=== PATIENT | male | born 1990 | race Two or more races ===

== ENCOUNTER 2019-09-14 13:57 | Inpatient (IN) | payer OTHER ==
[~2019-09-14] VITALS: Ht 165.1 cm; Wt 106.0 kg
[2019-09-14] MEDS ORDERED: ACETAMINOPHEN 325 MG TABLET PO PRN ×2 (14:30→16:15)
[2019-09-14 14:38] LABS: BASOPHILS % (AUTO) 0.5 % (0.0-2.0); EOSINOPHILS % (AUTO) 0.5 % (1.0-6.0); HEMATOCRIT 46.8 % (41-53); HEMOGLOBIN 16.3 g/dL (13.5-17.5); LYMPHOCYTES # (AUTO) 2.4 K/uL (1.0-4.8); MEAN CORPUSCULAR HEMOGLOBIN 30.6 pg (26.0-34.0); MEAN CORPUSCULAR HGB CONC 34.8 G/dL (31.0-37.0); MEAN CORPUSCULAR VOLUME 88 fL (80-100); MONOCYTES # (AUTO) 0.6 K/uL (0.1-1.0); MONOCYTES % (AUTO) 8.1 % (2.0-9.0); NEUTROPHILS # (AUTO) 4.7 K/uL (1.8-7.7); NEUTROPHILS % (AUTO) 59.9 % (40.0-70.0); PLATELET COUNT (AUTO) 210 K/uL (150-450); RED BLOOD CELL COUNT(AUTO) 5.32 MIL/uL (4.50-5.90); RED CELL DISTRIBUTION WIDTH 13.2 % (11.5-14.5)
[2019-09-14 14:48] LABS: ANION GAP 11 mmol/L (8-16); CALCIUM, TOTAL 9.3 mg/dL (8.8-10.5); CARBON DIOXIDE 28 mmol/L (22-29); CHLORIDE 100 mmol/L (98-107); CREATININE 1.17 mg/dL (0.60-1.30); GLOMERULAR FILTR. RATE CALC > 60 mL/min (>60); GLUCOSE,RANDOM 99 mg/dL (70-110); POTASSIUM 3.5 mmol/L (3.5-5.1); SODIUM SERUM 139 mmol/L (136-145); UREA NITROGEN, BLOOD 18 mg/dL (7-18)
[2019-09-14 14:54] LABS: ALANINE AMINOTRANSFERASE 35 U/L (12-78); ALBUMIN 3.9 g/dL (3.4-5.0); ALKALINE PHOSPHATASE 72 U/L (46-116); ASPARTATE AMINOTRANSFERASE 20 U/L (15-37); BILIRUBIN,TOTAL 0.7 mg/dL (0.1-1.0); TOTAL PROTEIN, SERUM 7.8 g/dL (6.4-8.2)
[2019-09-14 15:07] VITALS: BP 122/67
[2019-09-14] MEDS ORDERED: INFLUENZA VIRUS VACCINE QVS 2019-20 (3YR+)/PF 60 MCG/0.5 ML SYRINGE IM ONE (16:00)
[2019-09-14] MEDS ORDERED: ZOLPIDEM TARTRATE 5 MG TABLET PO PRN (16:15)
[2019-09-14 16:44] VITALS: BP 98/58
[2019-09-14 20:00] VITALS: BP 138/70
[2019-09-14] MEDS: DOCUSATE SODIUM 100 MG CAPSULE PO SCH (20:50)
[2019-09-15] VITALS (7 sets, daily range): BP systolic 93–122; BP diastolic 52–76
[2019-09-15] MEDS: FAMOTIDINE 20 MG TABLET PO SCH (08:37)
[2019-09-15] MEDS: DOCUSATE SODIUM 100 MG CAPSULE PO SCH ×2 (08:37→21:00)
[2019-09-15] MEDS: SERTRALINE HCL 50 MG TABLET PO SCH (09:00)
[2019-09-16 04:46] VITALS: BP 107/54
[2019-09-16] MEDS: SERTRALINE HCL 50 MG TABLET PO SCH (08:10)
[2019-09-16] MEDS: DOCUSATE SODIUM 100 MG CAPSULE PO SCH ×2 (08:10→20:39)
[2019-09-16] MEDS: FAMOTIDINE 20 MG TABLET PO SCH (08:10)
[2019-09-16 08:25] VITALS: BP 110/70
[2019-09-16 11:39] VITALS: BP 112/72
[2019-09-16 15:52] VITALS: BP 119/71
[2019-09-16 20:37] VITALS: BP 127/72
[2019-09-16] MEDS: MIRTAZAPINE 15 MG TABLET PO SCH (20:39)
[2019-09-16 23:43] VITALS: BP 110/59
[2019-09-17 04:00] VITALS: BP 118/62
[2019-09-17] MEDS: DOCUSATE SODIUM 100 MG CAPSULE PO SCH ×2 (07:57→21:00)
[2019-09-17] MEDS: FAMOTIDINE 20 MG TABLET PO SCH (07:57)
[2019-09-17 08:24] VITALS: BP 128/79
[2019-09-17 12:00] VITALS: BP 108/62
[2019-09-17 15:20] VITALS: BP 102/54
[2019-09-17 19:45] VITALS: BP 109/62
[2019-09-17] MEDS: MIRTAZAPINE 15 MG TABLET PO SCH (20:32)
[2019-09-17 23:39] VITALS: BP 95/60
[2019-09-18 05:17] VITALS: BP 99/57
[2019-09-18 07:42] VITALS: BP 106/66
[2019-09-18] MEDS: DOCUSATE SODIUM 100 MG CAPSULE PO SCH ×2 (08:05→20:33)
[2019-09-18] MEDS: FAMOTIDINE 20 MG TABLET PO SCH (08:05)
[2019-09-18 11:41] VITALS: BP 109/64
[2019-09-18 16:03] VITALS: BP 112/59
[2019-09-18 20:12] VITALS: BP 118/65
[2019-09-18] MEDS: MIRTAZAPINE 15 MG TABLET PO SCH (20:31)
[2019-09-19 00:23] VITALS: BP 109/65
[2019-09-19 04:49] VITALS: BP 101/65
[2019-09-19 08:07] VITALS: BP 111/66
[2019-09-19] MEDS: DOCUSATE SODIUM 100 MG CAPSULE PO SCH ×2 (08:24→20:23)
[2019-09-19] MEDS: FAMOTIDINE 20 MG TABLET PO SCH (08:34)
[2019-09-19 12:06] VITALS: BP 104/52
[2019-09-19 15:40] VITALS: BP 112/64
[2019-09-19 19:45] VITALS: BP 106/69
[2019-09-19] MEDS: MIRTAZAPINE 15 MG TABLET PO SCH (20:23)
[2019-09-20 00:06] VITALS: BP 112/69
[2019-09-20 04:40] VITALS: BP 111/58
[2019-09-20 07:26] VITALS: BP 108/65
[2019-09-20] MEDS: FAMOTIDINE 20 MG TABLET PO SCH (08:50)
[2019-09-20] MEDS: DOCUSATE SODIUM 100 MG CAPSULE PO SCH (08:50)
[2019-09-20 11:38] VITALS: BP 98/65
[2019-09-20] MEDS ORDERED: MIRT15 PO (12:48)
== END 2019-09-20 13:55 | DRG 881 ==
LOC: EMS 14:03 → 6S 14:45
PROVIDERS: ADMIT Internal Medicine; ATTEND Internal Medicine
DX: F32.9 Major depressive disorder, single episode, unspecified (principal); R45.851 Suicidal ideations; F41.9 Anxiety disorder, unspecified; F17.210 Nicotine dependence, cigarettes, uncomplicated; Z79.899 Other long term (current) drug therapy; Z91.5 Personal history of self-harm; Z23 Encounter for immunization
CPT/HCPCS: 90686; G0480

== ENCOUNTER 2019-11-16 18:42 | Inpatient (IN) | payer OTHER ==
[~2019-11-16] VITALS: Ht 177.8 cm; Wt 96.5 kg
[~2019-11-16 18:42] MED LIST: MIRT-92 PO
[2019-11-16] MEDS ORDERED: ONDANSETRON HCL 4 MG/2 ML VIAL IVP PRN (20:00)
[2019-11-16] MEDS ORDERED: ACETAMINOPHEN 325 MG TABLET PO PRN ×2 (20:00→23:45)
[2019-11-16 20:09] LABS: BASOPHILS % (AUTO) 0.6 % (0.0-2.0); EOSINOPHILS % (AUTO) 0.8 % (1.0-6.0); HEMOGLOBIN 15.8 g/dL (13.5-17.5); LYMPHOCYTES # (AUTO) 2.7 K/uL (1.0-4.8); LYMPHOCYTES % (AUTO) 33.5 % (22.0-44.0); MEAN CORPUSCULAR HEMOGLOBIN 30.7 pg (26.0-34.0); MEAN CORPUSCULAR HGB CONC 35.9 G/dL (31.0-37.0); MEAN CORPUSCULAR VOLUME 86 fL (80-100); MONOCYTES # (AUTO) 0.5 K/uL (0.1-1.0); MONOCYTES % (AUTO) 6.2 % (2.0-9.0); NEUTROPHILS # (AUTO) 4.7 K/uL (1.8-7.7); NEUTROPHILS % (AUTO) 58.9 % (40.0-70.0); PLATELET COUNT (AUTO) 202 K/uL (150-450); RED BLOOD CELL COUNT(AUTO) 5.14 MIL/uL (4.50-5.90); RED CELL DISTRIBUTION WIDTH 12.9 % (11.5-14.5)
[2019-11-16 20:20] LABS: ANION GAP 6 mmol/L (8-16); CALCIUM, TOTAL 9.5 mg/dL (8.8-10.5); CARBON DIOXIDE 31 mmol/L (22-29); CHLORIDE 106 mmol/L (98-107); CREATININE 1.33 mg/dL (0.60-1.30); GLOMERULAR FILTR. RATE CALC > 60 mL/min (>60); GLUCOSE,RANDOM 113 mg/dL (70-110); POTASSIUM 3.7 mmol/L (3.5-5.1); SODIUM SERUM 143 mmol/L (136-145); UREA NITROGEN, BLOOD 17 mg/dL (7-18)
[2019-11-16 20:22] VITALS: BP 134/64
[2019-11-16 20:26] LABS: ALANINE AMINOTRANSFERASE 13 U/L (12-78); ALBUMIN 3.9 g/dL (3.4-5.0); ALKALINE PHOSPHATASE 79 U/L (46-116); ASPARTATE AMINOTRANSFERASE < 5 U/L (15-37); BILIRUBIN,TOTAL 0.2 mg/dL (0.1-1.0); TOTAL PROTEIN, SERUM 7.1 g/dL (6.4-8.2)
[2019-11-16] MEDS ORDERED: NICOTINE 14 MG/24 HOUR PATCH TD PRN (23:45)
[2019-11-16] MEDS ORDERED: CloNIDine HCL 0.1 MG TABLET PO PRN (23:45)
[2019-11-16] MEDS ORDERED: PETROLATUM,WHITE 28 GM JELLY TP PRN (23:45)
[2019-11-16] MEDS ORDERED: MAGNESIUM HYDROXIDE SUSPENSION 30 ML UDCUP PO PRN (23:45)
[2019-11-16] MEDS ORDERED: ONDANSETRON HCL 4 MG TABLET PO PRN (23:45)
[2019-11-16] MEDS ORDERED: GuaiFENesin/D-METHORPHAN [SUGAR-FREE] 200-20MG/10 ML SYRUP UDCUP PO PRN (23:45)
[2019-11-16] MEDS ORDERED: LOPERAMIDE HCL 2 MG CAPSULE PO PRN (23:45)
[2019-11-16] MEDS ORDERED: MAG HYDROX/AL HYDROX/SIMETH ES 30 ML SUSPENSION UDCUP PO PRN (23:45)
[2019-11-16] MEDS ORDERED: DOCUSATE SODIUM 100 MG CAPSULE PO PRN (23:45)
[2019-11-16] MEDS ORDERED: ALBUTEROL SULFATE HFA 90 MCG/PUFF 8 GM INHALER IH PRN (23:45)
[2019-11-17 05:01] VITALS: BP 139/63
[2019-11-17 14:59] VITALS: BP 115/66
[2019-11-17 20:11] VITALS: BP 118/65
[2019-11-18 05:05] VITALS: BP 108/52
[2019-11-18] MEDS: SERTRALINE HCL 50 MG TABLET PO SCH (09:00)
[2019-11-18 16:02] VITALS: BP 115/61
[2019-11-18 20:34] VITALS: BP 105/55
[2019-11-18 23:05] VITALS: BP 105/67
[2019-11-18] MEDS: IBUPROFEN 400 MG TABLET PO PRN (23:25)
[2019-11-19 06:02] VITALS: BP 116/65
[2019-11-19 08:17] VITALS: BP 117/59
[2019-11-19] MEDS: SERTRALINE HCL 50 MG TABLET PO SCH (08:29)
[2019-11-19 11:45] VITALS: BP 108/60
[2019-11-19 14:45] VITALS: BP 114/66
[2019-11-19 19:30] VITALS: BP 130/73
[2019-11-19] MEDS: RisperiDONE 1 MG TABLET PO SCH (20:08)
[2019-11-20 08:11] VITALS: BP 104/66
[2019-11-20] MEDS: SERTRALINE HCL 50 MG TABLET PO SCH (10:16)
[2019-11-20 13:19] VITALS: BP 120/78
[2019-11-20 16:04] VITALS: BP 104/61
[2019-11-20 19:45] VITALS: BP 109/60
[2019-11-20] MEDS: RisperiDONE 1 MG TABLET PO SCH (20:19)
[2019-11-20] MEDS ORDERED: HALOPERIDOL LACTATE 5 MG/ML VIAL ONE (21:15)
[2019-11-20] MEDS ORDERED: LORazepam 2 MG/ML VIAL ONE (21:16)
[2019-11-20] MEDS ORDERED: DiphenhydrAMINE HCL 50 MG/ML VIAL ONE (21:16)
[2019-11-20] MEDS ORDERED: HALOPERIDOL LACTATE 5 MG/ML VIAL IM ONE (21:30)
[2019-11-20] MEDS ORDERED: LORazepam 2 MG/ML VIAL IM ONE (21:30)
[2019-11-20] MEDS ORDERED: DiphenhydrAMINE HCL 50 MG/ML VIAL IM ONE (21:30)
[2019-11-20 23:03] VITALS: BP 111/65
[2019-11-21 04:51] VITALS: BP 90/51
[2019-11-21] MEDS: SERTRALINE HCL 50 MG TABLET PO SCH (08:02)
[2019-11-21 08:04] VITALS: BP 107/75
[2019-11-21 13:55] VITALS: BP 113/64
[2019-11-21 16:11] VITALS: BP 122/65
[2019-11-21] MEDS: RisperiDONE 1 MG TABLET PO SCH (20:56)
[2019-11-21 20:59] VITALS: BP 125/78
[2019-11-22 04:00] VITALS: BP 110/64
[2019-11-22] MEDS: SERTRALINE HCL 50 MG TABLET PO SCH (08:06)
[2019-11-22 08:09] VITALS: BP 101/61
[2019-11-22 15:08] VITALS: BP 113/51
[2019-11-22 19:37] VITALS: BP 137/79
[2019-11-22] MEDS: RisperiDONE 1 MG TABLET PO SCH (19:56)
[2019-11-22] MEDS: IBUPROFEN 400 MG TABLET PO PRN (19:56)
[2019-11-23] MEDS ORDERED: DiphenhydrAMINE HCL 50 MG/ML VIAL IM ONE (00:15)
[2019-11-23] MEDS ORDERED: LORazepam 2 MG/ML VIAL IM ONE (00:15)
[2019-11-23] MEDS ORDERED: HALOPERIDOL LACTATE 5 MG/ML VIAL IM ONE (00:15)
[2019-11-23 05:18] VITALS: BP 119/78
[2019-11-23 07:36] VITALS: BP 122/65
[2019-11-23] MEDS: SERTRALINE HCL 50 MG TABLET PO SCH (08:28)
[2019-11-23] MEDS: RisperiDONE 1 MG TABLET PO SCH ×2 (12:10→20:19)
[2019-11-23 19:30] VITALS: BP 121/65
[2019-11-23 23:35] VITALS: BP 124/68
[2019-11-24 04:30] VITALS: BP 117/62
[2019-11-24 07:40] VITALS: BP 115/70
[2019-11-24] MEDS: RisperiDONE 1 MG TABLET PO SCH ×2 (08:09→20:06)
[2019-11-24] MEDS: SERTRALINE HCL 50 MG TABLET PO SCH (08:09)
[2019-11-24 11:49] VITALS: BP 109/66
[2019-11-24 16:45] VITALS: BP 107/48
[2019-11-24 20:05] VITALS: BP 122/76
[2019-11-25 04:30] VITALS: BP 118/72
[2019-11-25 08:13] VITALS: BP 110/72
[2019-11-25] MEDS: RisperiDONE 1 MG TABLET PO SCH ×2 (08:22→21:13)
[2019-11-25] MEDS: SERTRALINE HCL 50 MG TABLET PO SCH (08:26)
[2019-11-25] MEDS ORDERED: BISMUTH SUBSALICYLATE 524 MG/30 ML SUSPENSION UDCUP PO PRN (09:00)
[2019-11-25 09:29] LABS: BASOPHILS % (AUTO) 0.7 % (0.0-2.0); EOSINOPHILS % (AUTO) 0.6 % (1.0-6.0); HEMATOCRIT 43.6 % (41-53); HEMOGLOBIN 15.1 g/dL (13.5-17.5); LYMPHOCYTES # (AUTO) 1.3 K/uL (1.0-4.8); LYMPHOCYTES % (AUTO) 24.5 % (22.0-44.0); MEAN CORPUSCULAR HEMOGLOBIN 30.2 pg (26.0-34.0); MEAN CORPUSCULAR HGB CONC 34.5 G/dL (31.0-37.0); MEAN CORPUSCULAR VOLUME 87 fL (80-100); MONOCYTES # (AUTO) 0.3 K/uL (0.1-1.0); MONOCYTES % (AUTO) 5.4 % (2.0-9.0); NEUTROPHILS # (AUTO) 3.7 K/uL (1.8-7.7); NEUTROPHILS % (AUTO) 68.8 % (40.0-70.0); PLATELET COUNT (AUTO) 165 K/uL (150-450); RED BLOOD CELL COUNT(AUTO) 4.99 MIL/uL (4.50-5.90); RED CELL DISTRIBUTION WIDTH 12.8 % (11.5-14.5)
[2019-11-25 09:36] LABS: ANION GAP 11 mmol/L (8-16); CALCIUM, TOTAL 9.2 mg/dL (8.8-10.5); CARBON DIOXIDE 31 mmol/L (22-29); CHLORIDE 104 mmol/L (98-107); CREATININE 1.26 mg/dL (0.60-1.30); GLOMERULAR FILTR. RATE CALC > 60 mL/min (>60); GLUCOSE,RANDOM 122 mg/dL (70-110); POTASSIUM 3.5 mmol/L (3.5-5.1); SODIUM SERUM 146 mmol/L (136-145); UREA NITROGEN, BLOOD 20 mg/dL (7-18)
[2019-11-25 15:00] VITALS: BP 120/78
[2019-11-25 19:42] VITALS: BP 123/69
[2019-11-26 04:38] VITALS: BP 108/62
[2019-11-26 07:34] VITALS: BP 126/73
[2019-11-26] MEDS: RisperiDONE 1 MG TABLET PO SCH ×2 (08:55→20:27)
[2019-11-26] MEDS: SERTRALINE HCL 50 MG TABLET PO SCH ×2 (08:56→09:00)
[2019-11-26] MEDS: DEXTROSE 5%-WATER 500 ML IV ONE ×2 (09:19→09:27)
[2019-11-26 15:22] VITALS: BP 116/56
[2019-11-26 19:50] VITALS: BP 106/60
[2019-11-27 04:33] VITALS: BP 99/66
[2019-11-27] MEDS: RisperiDONE 1 MG TABLET PO SCH (08:05)
[2019-11-27] MEDS: SERTRALINE HCL 50 MG TABLET PO SCH (08:07)
[2019-11-27] MEDS ORDERED: SERT50TA12 PO (08:17)
[2019-11-27] MEDS ORDERED: RISP1 PO ×2 (08:18)
[2019-11-27 08:21] VITALS: BP 134/60
== END 2019-11-27 12:45 | DRG 885 ==
LOC: EMS 18:45 → 6S 20:02
PROVIDERS: ADMIT Internal Medicine; ATTEND Internal Medicine
DX: F33.2 Major depressive disorder, recurrent severe without psychotic features (principal); R45.851 Suicidal ideations; N18.9 Chronic kidney disease, unspecified; F17.200 Nicotine dependence, unspecified, uncomplicated; F14.90 Cocaine use, unspecified, uncomplicated; Z91.5 Personal history of self-harm
CPT/HCPCS: G0480; J1200; J1630; J2060